=== PATIENT | female | born 1960 | race Caucasian/White ===

== ENCOUNTER 2016-12-21 23:29 | Emergency (ER) | payer MEDICAID, OTHER, SELFPAY ==
[~2016-12-21] VITALS: Ht 165.1 cm; Wt 68.9 kg
[~2016-12-21 23:29] MED LIST: LEVO112T2; METO25TA91
[2016-12-22] MEDS ORDERED: OXYcodone/APAP 10/325MG TABLET ONE (00:26)
[2016-12-22] MEDS ORDERED: ONDANSETRON ODT 4 MG ONE (00:27)
[2016-12-22] MEDS ORDERED: ONDANSETRON ODT 4 MG PO ONE (00:30)
[2016-12-22] MEDS ORDERED: OXYcodone/APAP 10/325MG TABLET PO ONE (00:30)
[2016-12-22 00:31] LABS: HEMATOCRIT 41.9 % (34.6-47.8); HEMOGLOBIN 13.9 g/dL (11.7-16.4); WHITE BLOOD COUNT 5.9 x10^3/uL (3.4-10)
[2016-12-22 00:39] LABS: BLOOD UREA NITROGEN 19 mg/dL (7-18)
[2016-12-22 00:40] LABS: ASPARTATE AMINO TRANSFERASE 16 U/L (15-37)
[2016-12-22] MEDS ORDERED: OXYC-223 PO (01:03)
[2016-12-22 01:25] VITALS: BP 133/95
== END 2016-12-22 02:42 | disposition home or self-care (01) ==
LOC: ED 23:59
DX: R19.00 Intra-abdominal and pelvic swelling, mass and lump, unspecified site (principal); I10 Essential (primary) hypertension; E05.90 Thyrotoxicosis, unspecified without thyrotoxic crisis or storm; Z90.710 Acquired absence of both cervix and uterus; Z85.41 Personal history of malignant neoplasm of cervix uteri
CPT/HCPCS: 36415; 80053; 81003; 85025; 99284; Q0162

== ENCOUNTER 2017-10-14 20:03 | Emergency (ER) | payer MEDICAID ==
[~2017-10-14] VITALS: Ht 165.1 cm; Wt 70.7 kg
[~2017-10-14 20:03] MED LIST changes: +OXYC-306 PO
[2017-10-14 21:40] LABS: BASOPHILS # (AUTO) 0.03 x10^3/uL (0-0.1); BASOPHILS % (AUTO) 1 % (0-1); EOSINOPHILS # (AUTO) 0.12 x10^3/uL (0-0.4); EOSINOPHILS % (AUTO) 2 % (1-7); LYMPHOCYTES # (AUTO) 3.55 x10^3/uL (1-3.4); LYMPHOCYTES % (AUTO) 52 % (22-44); MD NO; MEAN CORPUSCULAR HEMOGLOBIN 32.6 pg (27.0-34.8); MEAN CORPUSCULAR HGB CONC 34.3 g/dL (32.4-35.8); MEAN PLATELET VOLUME 7.4 fL (7.4-10.4); MONOCYTES # (AUTO) 0.57 x10^3/uL (0.2-0.8); MONOCYTES % (AUTO) 8 % (2-9); NEUTROPHILS # (AUTO) 2.53 x10^3/uL (1.8-6.8); NEUTROPHILS % (AUTO) 37 % (42-75); PLATELET COUNT 274 x10^3/uL (130-400); RED BLOOD COUNT 4.26 x10^6/uL (3.82-5.3); RED CELL DISTRIBUTION WIDTH 12.7 % (9.6-15.2)
[2017-10-14 21:50] LABS: CHLORIDE 109 mmol/L (98-107)
[2017-10-14 21:51] LABS: ALANINE AMINOTRANSFERASE 29 U/L (12-78); ALBUMIN 3.8 g/dL (3.4-5.0); ANION GAP 6 mmol/L (5-15); CALCIUM 9.4 mg/dL (8.5-10.1); CREATININE 0.73 mg/dL (0.55-1.02)
[2017-10-14 21:53] LABS: ALKALINE PHOSPHATASE 102 U/L (45-117); BILIRUBIN,TOTAL 0.2 mg/dL (0.2-1.0); TOTAL PROTEIN 7.9 g/dL (6.4-8.2)
[2017-10-14 22:18] LABS: MICROSCOPIC NOT IND
[2017-10-14 22:42] LABS: CULTURE INDICATED? NO
[2017-10-14 23:12] LABS: TROPONIN I < 0.015 ng/mL (0.000-0.045)
[2017-10-15 00:30] VITALS: BP 148/87
== END 2017-10-15 01:18 | disposition home or self-care (01) ==
LOC: ED 23:21
DX: M48.56XA Collapsed vertebra, not elsewhere classified, lumbar region, initial encounter for fracture (principal); E05.90 Thyrotoxicosis, unspecified without thyrotoxic crisis or storm; I10 Essential (primary) hypertension; W01.0XXA Fall on same level from slipping, tripping and stumbling without subsequent striking against object, initial encounter; Y93.89 Activity, other specified; Y99.8 Other external cause status; C53.9 Malignant neoplasm of cervix uteri, unspecified; G89.11 Acute pain due to trauma; M25.511 Pain in right shoulder
CPT/HCPCS: 36415; 70450; 72125; 72131; 72192; 80053; 81003; 84484; 85025; 99285

== ENCOUNTER 2018-06-05 11:02 | Emergency (ER) | payer MEDICAID ==
[~2018-06-05] VITALS: Ht 160 cm; Wt 68.0 kg
--- NOTE | 2018-06-05 11:20 | NUR ---
PT AMBULATORY TO [facility] FROM [facility] WITH STEADY GAIT. ACCOMPANIED BY DAUGHTER. A&OX4. RESP REGULAR AND UNLABORED. PT AND DAUGHTER REPORTS "FEVER, BODY ACHES, HEADACHE SINCE TUESDAY, TAKING OVER THE COUNTER TYLENOL (LAST DOSE YESTERADAY)." EDWINA FRANKS AT BEDSIDE FOR EVALUATION. CALL LIGHT IN REACH.
[2018-06-05] MEDS ORDERED: HYDROcodone/APAP 7.5-325MG/15ML UDC PO ONE (11:30)
[2018-06-05] MEDS ORDERED: KETOROLAC 30 MG/1 ML IM ONE (11:30)
[2018-06-05 12:03] LABS: BASOPHILS # (AUTO) 0.01 x10^3/uL (0-0.1); BASOPHILS % (AUTO) 0 % (0-1); EOSINOPHILS % (AUTO) 0 % (1-7); LYMPHOCYTES # (AUTO) 0.61 x10^3/uL (1-3.4); LYMPHOCYTES % (AUTO) 11 % (22-44); MD NO; MEAN CORPUSCULAR HEMOGLOBIN 32.4 pg (27.0-34.8); MEAN CORPUSCULAR HGB CONC 33.9 g/dL (32.4-35.8); MEAN CORPUSCULAR VOLUME 95.6 fL (80-100); MEAN PLATELET VOLUME 7.4 fL (7.4-10.4); MONOCYTES # (AUTO) 0.55 x10^3/uL (0.2-0.8); MONOCYTES % (AUTO) 10 % (2-9); NEUTROPHILS # (AUTO) 4.52 x10^3/uL (1.8-6.8); NEUTROPHILS % (AUTO) 79 % (42-75); PLATELET COUNT 214 x10^3/uL (130-400); RED BLOOD COUNT 4.36 x10^6/uL (3.82-5.3); RED CELL DISTRIBUTION WIDTH 13.1 % (9.6-15.2)
[2018-06-05 12:03] LABS: RAPID INFLUENZA A POSITIVE (Negative); RAPID INFLUENZA B Negative (Negative)
[2018-06-05] MEDS ORDERED: HYDROcodone/APAP 7.5-325MG/15ML UDC ONE (12:04)
[2018-06-05] MEDS ORDERED: KETOROLAC 30 MG/1 ML ONE (12:04)
[2018-06-05 12:11] LABS: ALBUMIN 3.9 g/dL (3.4-5.0); ANION GAP 8 mmol/L (5-15); CALCIUM 9.2 mg/dL (8.5-10.1); CHLORIDE 106 mmol/L (98-107); CREATININE 0.84 mg/dL (0.55-1.02)
[2018-06-05] MEDS ORDERED: ACETAMINOPHEN 500 MG TABLET ONE (12:19)
--- NOTE | 2018-06-05 12:22 | NUR ---
PT MEDICATED NOTED PER EDWINA FRANKS ORDER FOR BODY ACHES. PT REPORTS ADVERSE REACTION/ALLERGY TO HYDRCODONE, "MAKES MY HEART RACE, CHEST PRESSURE, ANXIETY." DISCUSSED WITH EDWINA FRANKS, AWARE, TYLENOL ORDER RECEIVED.
[2018-06-05] MEDS ORDERED: ACETAMINOPHEN 500 MG TABLET PO ONE (12:30)
--- NOTE | 2018-06-05 12:32 | NUR ---
EDWINA FRANKS AT BEDSIDE FOR RECHECK
--- NOTE | 2018-06-05 13:00 | NUR ---
DR. KHAN AT BEDSIDE DISCUSSING POC AND DISCHARGE POC.
[2018-06-05 13:16] VITALS: BP 106/61
== END 2018-06-05 13:23 | disposition home or self-care (01) ==
LOC: ED 12:14
DX: J10.1 Influenza due to other identified influenza virus with other respiratory manifestations (principal); I10 Essential (primary) hypertension; E03.9 Hypothyroidism, unspecified; Z85.41 Personal history of malignant neoplasm of cervix uteri
CPT/HCPCS: 36415; 71046; 80048; 82040; 83605; 85025; 87081; 87400; 87880; 96372; 99284; J1885

== ENCOUNTER 2020-04-12 17:11 | Emergency (ER) | payer MEDICARE, MEDICAID ==
[~2020-04-12] VITALS: Ht 162.6 cm; Wt 72.4 kg
--- NOTE | 2020-04-12 17:38 | NUR ---
PT BROUGHT BACK FROM TRIAGE WITH CHIEF COMPLAINT OF INCREASING COUGH AND HEADACHE, COVID POSITIVE ABOUT 2 WEEKS AGO. ALSO COMPLAINTS RIGHT ARM PAIN FOR 4 WEEKS, RADIATES UP NECK. PT DENIES FALL/INJURY/TRAUMA.
--- NOTE | 2020-04-12 17:47 | NUR ---
ERMD LAW AT BEDSIDE FOR EVALUATION.
[2020-04-12] MEDS ORDERED: KETOROLAC 30 MG/1 ML ONE (17:57)
[2020-04-12] MEDS ORDERED: KETOROLAC 30 MG/1 ML IM ONE (18:30)
[2020-04-12 18:34] LABS: BASOPHILS % (AUTO) 0 % (0-1); EOSINOPHILS % (AUTO) 2 % (1-7); LYMPHOCYTES % (AUTO) 44 % (22-44); MEAN CORPUSCULAR HEMOGLOBIN 34.1 pg (27.0-34.8); MEAN CORPUSCULAR HGB CONC 35.3 g/dL (32.4-35.8); MEAN PLATELET VOLUME 7.5 fL (7.4-10.4); MONOCYTES % (AUTO) 8 % (2-9); NEUTROPHILS % (AUTO) 47 % (42-75); PLATELET COUNT 330 x10^3/uL (130-400); RED BLOOD COUNT 3.94 x10^6/uL (3.82-5.3); RED CELL DISTRIBUTION WIDTH 12.8 % (9.6-15.2)
[2020-04-12 18:35] LABS: MD NO
[2020-04-12 18:44] LABS: ALBUMIN 3.8 g/dL (3.4-5.0); ANION GAP 7 mmol/L (5-15); CALCIUM 8.7 mg/dL (8.5-10.1); CHLORIDE 111 mmol/L (98-107); D-DIMER (DIC) 1.67 ug/mlFEU (0.00-0.52); PROTIME 10.4 Seconds (9.6-11.5)
[2020-04-12 18:49] LABS: ALANINE AMINOTRANSFERASE 66 U/L (12-78); ALKALINE PHOSPHATASE 128 U/L (45-117); BILIRUBIN,TOTAL 0.5 mg/dL (0.2-1.0); C-REACTIVE PROTEIN, QUANT 0.33 mg/dL (0.02-0.49); CREATININE 0.72 mg/dL (0.55-1.02); TOTAL PROTEIN 7.5 g/dL (6.4-8.2)
--- NOTE | 2020-04-12 18:49 | NUR ---
REPORT TO GREER YOUNG
--- NOTE | 2020-04-12 19:03 | NUR ---
report from mitzy salazar. First contact, vss. Pt says no relief from toradol still reports same amt of pain. AIDET provided.
[2020-04-12 19:04] VITALS: BP 126/73
== END 2020-04-12 19:42 | disposition home or self-care (01) ==
LOC: ED 19:30
DX: R06.00 Dyspnea, unspecified (principal); R05 Cough; J06.9 Acute upper respiratory infection, unspecified; I10 Essential (primary) hypertension; Z90.710 Acquired absence of both cervix and uterus; Z85.43 Personal history of malignant neoplasm of ovary; Z85.850 Personal history of malignant neoplasm of thyroid; Z85.41 Personal history of malignant neoplasm of cervix uteri
CPT/HCPCS: 36415; 71045; 80053; 82728; 83605; 83615; 84145; 85025; 85049; 85379; 85384; 85610; 85730; 86140; 87040; 93005; 96372; 99285; J1885